=== PATIENT | female | born 1995 | race Caucasian/White ===

== ENCOUNTER 2018-04-28 20:49 | Emergency (ER) | payer OTHER ==
--- NOTE | 2018-04-28 21:33 | EDPHY ---
H & P Stated Complaint: SHAW, NAUSEA X 1 DAY Time Seen by Provider: 04/28/18 21:31 HPI/ROS: HPI: This is a 22-year-old female who presents with Chief Complaint: SHAW, NAUSEA X 1 DAY Location: bi-temporal head Quality: Aching Duration: 1 day Signs and Symptoms: no fever, + nausea, no vomiting, no diarrhea, no urinary symptoms, no chest pain, no shortness of breath, no wheezing, no cough, no sore throat, no neck stiffness, no joint pain, no swollen glands, no ear pain, no rash, + light sensitivity, + noise sensitivity, no aura Timing: Acute, constant Severity: Moderate Context: Patient is a student at [employer], presents from urgent care with request for imaging of the brain of new onset of headache that started yesterday. Patient reports that she woke up with a bitemporal headache that was nonradiating in nature and described as severe. Patient reports that was accompanied by nausea but no vomiting, light sensitivity, noise sensitivity. She denies seeing a aura or visual changes. She reports that she has no prior history of migraines. She had an eye exam 1 month ago and does wear contact lenses. She denies any increased stress. She is currently studying for mid terms. Denies any fever, sore throat, neck stiffness, swollen glands, body aches. Denies thunderclap symptoms. Modifying Factors: None Comment: ROS: A comprehensive 10 system review of systems is otherwise negative aside from elements mentioned in the history of present illness. MEDICAL/SURGICAL/SOCIAL HISTORY: Medical history: Depression, attention deficit hyperactivity disorder. Has an IUD in place. 2 CONCUSSIONS. Surgical history: L BREAST LUMPECTOMY, TONSILLECTOMY Social history: Never smoked. Family history noncontributory. CONSTITUTIONAL: Well-developed, well-nourished, nontoxic-appearing young adult white female, awake and alert, no obvious distress HEENT: Atraumatic and normocephalic, PERRL, EOMI. Nares patent; no rhinorrhea; no nasal mucosal edema. Tympanic membranes clear. Oropharynx clear, no exudate and moist pink mucosa. Airway patent. No lymphadenopathy. No meningismus. Cardiovascular: Normal S1/S2, regular rate, regular rhythm, without murmur rub or gallop. PULMONARY/CHEST: Symmetrical and nontender. Clear to auscultation bilaterally. Good air movement. No accessory muscle usage. ABDOMEN: Soft, nondistended, nontender, no rebound, no guarding, no peritoneal signs, no masses or organomegaly. No CVAT. EXTREMITIES: 2/2 pulses, strength 5/5, no deformities, no clubbing, no cyanosis or edema. NEUROLOGICAL: no focal neuro deficits. GCS 15. Cranial nerves 2-12 grossly intact. No nystagmus. Normal cerebellar testing. Speech normal. SKIN: Warm and dry, no erythema. no rash. Good capillary refill. Source: Patient Exam Limitations: No limitations - Personal History LMP (Females 10-55): IUD In Place Current Tetanus Diphtheria and Acellular Pertussis (TDAP): Yes - Medical/Surgical History Hx Asthma: No Hx Chronic Respiratory Disease: No Hx Diabetes: No Hx Cardiac Disease: No Hx Renal Disease: No Hx Cirrhosis: No Hx Alcoholism: No Hx HIV/AIDS: No Hx Splenectomy or Spleen Trauma: No Other PMH: 2 CONCUSSIONS, L BREAST LUMPECTOMY, TONSILECTOMY - Social History Smoking Status: Never smoked Constitutional: Initial Vital Signs Temperature (C) 37.2 C 04/28/18 21:06 Heart Rate 84 04/28/18 21:06 Respiratory Rate 16 04/28/18 21:06 Blood Pressure 115/78 04/28/18 21:06 O2 Sat (%) 97 04/28/18 21:06 O2 Delivery Mode Room Air Allergies/Adverse Reactions: No Known Allergies Allergy (Verified 04/28/18 21:05) Home Medications: Medication Instructions Recorded Acet/Caffeine/Buta Fioricet 1 each PO Q6 PRN #10 tab 04/28/18 [Fioricet (*)] Adderall 10 MG (*) 04/28/18 Citalopram 04/28/18 Lexapro 04/28/18 Ondansetron Odt [Zofran Odt 4 mg 4 mg PO Q4 PRN #12 tab 04/28/18 (*)] Medical Decision Making - Diagnostics Imaging Results: Imaging Impressions Head CT 04/28/18 21:37 Impression: Normal CT of the head. Specifically, a headache source is not identified. Results called and discussed with Katie DELVALLE on 04/28/2018 at 22:11. ED Course/Re-evaluation: Vital signs reviewed and stable upon arrival. IV access and 1 L normal saline, IV Decadron, IV Toradol, IV Reglan, IV Benadryl , IV promethazine given Due to worse headache of life; head CT scan ordered Suspected this is a new onset migraine headache. No signs of meningitis. Suspect viral illness versus migraine versus tension type headache. 2212: Called By radiologist, Dr. Kunal Roberts, who reports that head CT scan shows no acute intracranial process, no sinusitis. 2305: Reassessed patient. Reports moderate relief of symptoms. Significant other at bedside will be driving patient home. School note provided per request. Passed road test without any difficulty. This patient was seen under the supervision of my secondary supervising physician. I evaluated care for this patient independently. Discussed this patient with Dr. Lackey. Differential Diagnosis: Headache including but not limited to subarachnoid hemorrhage, migraine headache , tension headache and infectious causes such as meningitis, pharyngitis and sinusitis. - Data Points Medications Given: Discontinued Medications Dexamethasone (Decadron Injection) 8 mg IVP EDNOW ONE Stop: 04/28/18 21:37 Last Admin: 04/28/18 22:04 Dose: 8 mg Diphenhydramine HCl (Benadryl Injection) 25 mg IVP EDNOW ONE Stop: 04/28/18 21:42 Last Admin: 04/28/18 22:04 Dose: 25 mg Sodium Chloride (Ns) 1,000 mls @ 3,000 mls/hr IV EDNOW ONE Stop: 04/28/18 21:55 Last Admin: 04/28/18 22:03 Dose: 1,000 mls Ketorolac Tromethamine (Toradol) 15 mg IVP/IM EDNOW ONE Stop: 04/28/18 21:37 Last Admin: 04/28/18 22:04 Dose: 15 mg Metoclopramide HCl (Reglan Injection) 10 mg IVP EDNOW ONE Stop: 04/28/18 21:37 Last Admin: 04/28/18 22:03 Dose: 10 mg Promethazine HCl (Phenergan) 12.5 mg IVP EDNOW ONE Stop: 04/28/18 21:37 Last Admin: 04/28/18 22:04 Dose: 12.5 mg Departure - Departure Disposition: Home, Routine, Self-Care Clinical Impression: Cephalgia Qualifiers: Headache type: unspecified Headache chronicity pattern: acute headache Intractability: not intractable Qualified Code(s): R51 - Headache Condition: Good Instructions: Acute Headache (ED) Additional Instructions: Rest as much as possible until you are feeling better. Take Tylenol 650 mg every 4 hours and/or Ibuprofen 600 mg every 8 hours with food as needed for pain/headache. Take Fioricet every 6 hr as needed for headache. Take Zofran every 4-6 hours as needed for nausea, vomiting. Consume a minimum of 8-10 glasses of water or electrolyte fluid replacement drinks that include Gatorade, Powerade, Pedialyte. If Symptoms persist greater than 2-3 days, follow-up with primary care provider or Neurology for further evaluation. Return to the ER immediately if you have progressive headaches, neurologic deficits, gait abnormality, visual disturbance, slurred speech, or any other symptom that concerns you. Referrals: [facility] [Other] - 2-3 days, if not improved [facility] [Outside] - As per Instructions Stand Alone Forms: School Excuse Prescriptions: Acet/Caffeine/Buta Fioricet [Fioricet (*)] 1 each PO Q6 PRN #10 tab PRN Reason: Headache Ondansetron Odt [Zofran Odt 4 mg (*)] 4 mg PO Q4 PRN #12 tab PRN Reason: Nausea/Vomiting, Use 1st
[2018-04-28] MEDS ORDERED: PROMETHAZINE HCL 25 MG/ML INJ IVP ONE (21:36)
[2018-04-28] MEDS ORDERED: METOCLOPRAMIDE 10 MG/2 ML VIAL IVP ONE (21:36)
[2018-04-28] MEDS ORDERED: NS 1,000 ML IV ONE (21:36)
[2018-04-28] MEDS ORDERED: KETOROLAC 15 MG/1 ML SDV IVP/IM ONE (21:36)
[2018-04-28] MEDS ORDERED: DEXAMETHASONE 4 MG/ML VIAL IVP ONE (21:36)
[2018-04-28 23:12] VITALS: BP 97/58
== END 2018-04-28 23:12 | disposition home or self-care (01) ==
DX: R51 Headache (principal)
CPT/HCPCS: 96374; J1100; J1200; J1885; J2550; J2765

== ENCOUNTER → 2018-05-19 | Outpatient (CLI) | payer OTHER ==
[~2018-05-19] MED LIST: GADOBUTROL 10 ML VIAL IVP ONE
== END ==
LOC: FIMAGING 08:48
PROVIDERS: ATTEND Psychiatry & Neurology Neurology
DX: G43.909 Migraine, unspecified, not intractable, without status migrainosus (principal); R20.2 Paresthesia of skin
CPT/HCPCS: A9585

== ENCOUNTER 2018-12-16 01:21 | Emergency (ER) | payer OTHER | END 2018-12-16 02:45 | disposition home or self-care (01) ==